=== PATIENT | male | born 1965 | race Caucasian/White ===

== ENCOUNTER 2024-09-29 16:16 | Emergency (ER) | payer OTHER, SELFPAY ==
[2024-09-29 16:18] VITALS: BP 171/91
[2024-09-29 16:34] LABS: Urine Albumin 2+ (Neg - Trace); Urine Bilirubin Negative (Negative); Urine Character Slightly Cloudy (Clear); Urine Color Yellow; Urine Glucose Negative (Negative); Urine Ketone 3+ (Negative); Urine Leukocyte Negative (Negative); Urine Nitrite Negative (Negative); Urine Occult Blood 4+ (Negative); Urine Specific Gravity 1.025 (<1.030); Urine Urobilinogen Negative (Neg - 1+)
[2024-09-29 16:44] LABS: Urine Amorphous Seen; Urine Mucus Few; Urine Urothelial Cell 0-2 /LPF (FEW)
[2024-09-29 16:54] LABS: Urine Red Blood Cell >100 /HPF (0-2)
[2024-09-29 16:55] LABS: Urine Bacteria Few (Negative)
[2024-09-29] MEDS: TORADOL 15 MG IV (18:17)
[2024-09-29] MEDS: NSS 1000 IV (18:18)
[2024-09-29 18:44] LABS: Hematocrit 44.9 % (39.0-52.0); Hemoglobin 15.3 g/dL (13.0-18.0); Mean Corp Hgb Conc. 34.1 g/dL (33.0-37.0); Mean Corpuscular Hgb 29.4 pg (27.0-31.0); Mean Corpuscular Volume 86.3 fL (80.0-94.0); Mean Platelet Volume 10.2 fL (7.4-10.4); Platelet Count 254 10^3/uL (130-400); Red Cell Dist. Width 12.8 % (11.5-14.5); White Blood Cell Count 14.4 10^3/uL (4.8-10.8)
[2024-09-29 18:49] LABS: Blood Urea Nitrogen 38 mg/dl (9-20); Calcium 9.8 mg/dl (8.4-10.2); Carbon Dioxide 23 mmol/L (22-30); Chloride 105 mmol/L (98-107); Glucose 134 mg/dl (70-99); Sodium 138 mmol/L (135-145); eGFR > 60.00
--- NOTE | 2024-09-29 18:58 | ED.GENMED ---
History of Present Illness
General
Chief Complaint: Flank Pain
Time Seen by Provider: 09/29/24 17:22
History of Present Illness
History of Present Illness:
59-year-old male with history of recurrent kidney stones presents to the emergency department for evaluation of right flank pain that began early this morning. Took ibuprofen without relief. Did have some vomiting as well. No fever, chills, or
sweats. Has never required ureteral stenting for these in the past
Past History
Past History
ED Past Medical History: None
ED Past Surgical History: None
Social History
Tobacco: Non-smoker
Alcohol: None
Drug: None
Personal:
Living: with family
Review of Systems
Review of Systems
Allergies reviewed?: Yes
All Other Systems: ROS reviewed and negative except as documented in HPI and ROS
Phy Exam
Physical Exam
Physical Exam:
GEN: Well appearing, NAD, WDWN
HEENT: Oral mucosa moist, no scleral icterus
Cardiac: Regular rate
Lung: No respiratory distress, no tachypnea
MSK: No gross deformity or injuries
Skin: Good color, no pallor or jaundice, no rashes
Neuro: AO x3, moves all extremities freely
Psych: Calm, cooperative
Course
Orders/Labs/Results
Orders:
Orders
09/29/24 16:24
Urinalysis Reflex To Culture Urgent
Date Specimen was Collected: 09/29/24
Time Specimen was Collected: 16:20
Urine Microscopic Reflex Cult Urgent
09/29/24 17:50
0.9% Sodium Chloride 1000 ml [Nss] 1,000 ml IV BOLUS
Ketorolac [Toradol] 15 mg IV NOW STA
09/29/24 18:21
Basic Metabolic Panel Urgent
Complete Blood Count/No Diff Urgent
Abnormal Lab Results
09/29/24 09/29/24
16:24 18:21
WBC 14.4 H 10^3/uL
(4.8-10.8)
BUN 38 H mg/dl
(9-20)
Glucose 134 H mg/dl
(70-99)
Urine Ketones 3+ A
(Negative)
Ur Occult Blood Reflex 4+ A
(Negative)
Urine RBC >100 A /HPF
(0-2)
Urine Bacteria (Reflex) Few A
(Negative)
Urine Albumin (Reflex) 2+ A
(Neg - Trace)
09/29/24 18:21
09/29/24 18:21
Vital Signs
Initial and Last Documented VS:
Initial Vital Signs
Temp Pulse Resp BP Pulse Ox
98.0 F 87 18 171/91 100
09/29/24 16:18 09/29/24 16:18 09/29/24 16:18 09/29/24 16:18 09/29/24 16:18
Last Documented Vital Signs
Temp Pulse Resp BP Pulse Ox
98.0 F 87 18 171/91 100
09/29/24 16:18 09/29/24 16:18 09/29/24 16:18 09/29/24 16:18 09/29/24 18:59
MDM/Problems Addressed
MDM/Problems Addressed:
59-year-old male presents with right flank pain similar to prior kidney stones. Urinalysis is congruent with large hematuria, labs reassuring, mild leukocytosis likely pain and stress response as the patient is afebrile with no other infectious
signs or symptoms. We discussed imaging versus withholding imaging, given that initial dose of Toradol provided rapid relief with no further symptoms avoidance of imaging is reasonable at this time as it is likely the patient will be able to pass
the stone without difficulty. Will treat supportively and discussed ED return parameters
*Pulse Oximetry
SaO2: 100
Oxygen Mode of Delivery: Room air
*Critical Care Note
Total Time (30-74mins, 75-104mins- exclusive of procedures): Not Applicable
ED Attending Note
-
Portions of this chart may have been created with voice recognition software.� Occasional wrong word or��sound alike� substitutions may have occurred due to the inherent limitations of voice recognition software.
Discharge Plan
Departure
Patient Disposition: Home (Routine Discharge)
Date of Disposition: 09/29/24
Time of Disposition: :
Patient with high blood pressure during this ER visit?: No
Discharge Problem:
Kidney stone
Instructions: Kidney Stones (DC)
Prescriptions:
New
ketorolac 10 mg tablet
10 mg PO Q8H 5 Days Qty: 15 0RF
Rx Instructions:
maximum total duration of 5 days from all oral, intranasal, or parenteral formulations
oxycodone-acetaminophen [Percocet] 5-325 mg tablet
1 tab PO Q6HPRN PRN (Reason: pain) Qty: 8 0RF
tamsulosin [Flomax] 0.4 mg capsule
0.4 mg PO HS Qty: 10 0RF
No Action
ibuprofen [Advil] 200 MG tablet
400 mg PO PRN PRN (Reason: as directed)
oxycodone-acetaminophen 5 MG/325 MG tablet
1 tab PO Q6HPRN PRN (Reason: pain) Qty: 12 0RF
tamsulosin 0.4 MG capsule
0.4 mg PO DAILY Qty: 7 0RF
ondansetron 4 MG tablet,disintegrating
4 mg PO TIDPRN PRN (Reason: nausea/vomiting) Qty: 12 0RF
Referrals:
Frank Summers PA-C [Family Provider, Family Practice]
Activity Restrictions/Additional Instructions:
Return to the ER if you develop a fever or uncontrolled pain
Interventions
Interventions:
*Risk Screen - Suicide Last Done: 09/29/24 16:18
*General Assessment Last Done: 09/29/24 16:18
*Neglect/Abuse Screening Last Done: 09/29/24 16:18
*ED- Fall Risk Assessment Last Done: 09/29/24 18:25
*ED COVID-19 Vaccine History Last Done: 09/29/24 16:18
GD-Yhoefi-Lyhfadgzgp Assessment Last Done: 09/29/24 18:25
ED-Male Genitourinary Assessment Last Done: 09/29/24 18:25
Discharge Date and Time
Print Language: MICRONESIAN
[2024-09-29] MEDS: FLOMAX 0.4 MG PO (19:42)
== END 2024-09-29 20:27 | disposition home or self-care (01) ==
LOC: EMR 16:16
PROVIDERS: Physician Assistant; EMERGENCY PHYSICIAN Emergency Medicine; FAMILY PHYSICIAN Physician Assistant Medical
DX: N20.0 Calculus of kidney (principal); R10.9 Unspecified abdominal pain; Z87.442 Personal history of urinary calculi
CPT/HCPCS: 99284; 96374; 96361; 80048; 81003; 81015; 85027

== ENCOUNTER → 2024-10-04 15:14 | Outpatient (REF) | payer OTHER, SELFPAY | LOC: RAD 15:14 | PROVIDERS: ATTENDING PHYSICIAN Physician Assistant | DX: N20.0 Calculus of kidney (principal); R11.0 Nausea | CPT/HCPCS: 74176 ==